=== PATIENT | female | born 1985 | race Caucasian/White ===

== ENCOUNTER 2020-02-13 02:38 | Emergency (ER) | payer SELFPAY ==
--- NOTE | 2020-02-13 02:57 | ERPHSYRPT ---
- History of Present Illness Time Seen by Provider: 02/13/20 02:50 Source: patient Exam Limitations: no limitations Physician History: This is a 34-year-old intoxicated white female who fell backwards hitting her head causing a 2-1/2 to 3 cm laceration in the back of her head. Patient told the nurse that she has had her tetanus shot within the last 5 years. However she told me that she did not know. Patient is intoxicated and did not recall the specific events. But then stated that she did not pass out or lose consciousness. Occurred: just prior to arrival Severity: mild Head Injury Location: occipital Method of Injury: fell Loss of Consciousness: other (Recall) Associated Symptoms: denies symptoms Allergies/Adverse Reactions: No Known Drug Allergies Allergy (Unverified 02/13/20 02:44) Home Medications: No Home Meds [No Home Meds] 07/30/13 [History] Hx Tetanus, Diphtheria Vaccination/Date Given: Yes (2008) Hx Influenza Vaccination/Date Given: No Hx Pneumococcal Vaccination/Date Given: No Travel Risk - International Travel Have you traveled outside of the country in past 3 weeks: No - Coronavirus Screening Are you exhibiting any of the following symptoms?: No Close contact with a COVID-19 positive Pt in past 14-21 Days: No - Review of Systems Constitutional: No Symptoms Eyes: No Symptoms Ears, Nose, & Throat: No Symptoms Respiratory: No Symptoms Cardiac: No Symptoms Abdominal/Gastrointestinal: No Symptoms Genitourinary Symptoms: No Symptoms Musculoskeletal: No Symptoms Skin: Other (Scalp laceration) Neurological: Other (Obvious alcohol intoxication) Psychological: No Symptoms Endocrine: No Symptoms Hematologic/Lymphatic: No Symptoms Immunological/Allergic: No Symptoms All Other Systems: Reviewed and Negative - Past Medical History Pertinent Past Medical History: No Neurological History: No Pertinent History ENT History: No Pertinent History Cardiac History: No Pertinent History Respiratory History: No Pertinent History Endocrine Medical History: No Pertinent History Musculoskeletal History: No Pertinent History GI Medical History: No Pertinent History History: No Pertinent History Psycho-Social History: No Pertinent History Female Reproductive Disorders: No Pertinent History - Past Surgical History Past Surgical History: No Neuro Surgical History: No Pertinent History Cardiac: No Pertinent History Respiratory: No Pertinent History Gastrointestinal: No Pertinent History Genitourinary: No Pertinent History Musculoskeletal: No Pertinent History Female Surgical History: No Pertinent History - Social History Smoking Status: Current every day smoker How long have you smoked: 5 YEARS Exposure to second hand smoke: Yes Alcohol Use: Socially Drug Use: none Patient Lives Alone: No Significant Family History: no pertinent family hx - Nursing Vital Signs Nursing Vital Signs: Initial Vital Signs Temperature 97.6 F 02/13/20 02:39 Pulse Rate 98 H 02/13/20 02:39 Respiratory Rate 16 02/13/20 02:39 Blood Pressure 135/95 02/13/20 02:39 O2 Sat by Pulse Oximetry 99 02/13/20 02:39 Pain Scale Pain Intensity 0 - [place] Coma Score Best Eye Response ([place]): (3) open to voice Best Verbal Response ([place]): (4) confused conversation Best Motor Response ([place]): (6) obeys commands [place] Total: 13 - Physical Exam General Appearance: obese, other (Smells of alcohol ingestion) Head Injury: lacerations (Transverse occipital region. No active bleeding) Eye Exam: bilateral eye: normal inspection, PERRL, EOMI ENT Exam: airway nml, nml ext.inspection Neck Exam: supple, trachea midline, full range of motion, normal alignment, normal inspection Cardiovascular/Respiratory Exam: chest non-tender, normal breath sounds, regular rate/rhythm, heart sounds normal, no respiratory distress, No rib tenderness, No subcutaneous emphysema, No crepitus Gastrointestinal/Abdominal Exam: soft, non tender, no distention, no mass, no guarding, No guarding, No rebound, No tenderness Pelvic Exam: not done Rectal Exam: not done Back Exam: normal inspection, normal range of motion, No CVA tenderness, No vertebral tenderness Extremity Exam: non-tender, normal range of motion, normal inspection Mental Status Exam: alert, oriented x 3, cooperative, 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 Examination was performed in a bloodless field to the base.) Irrigated: Yes Hibiclens Prep: Yes Wound Repaired With: Cheikh (Six cheikh were placed to approximate the wound.) Layer Closure?: No Progress: 02/13/20 03:56 The area was prepped with Hibiclens by the nurse. 4 x 4's were used to dry the laceration site. Six cheikh were placed to approximate the skin edges. There were no complications the patient told procedure well. - Course Nursing assessment & vital signs reviewed: Yes Ordered Tests: Active Orders 24 hr Category Date Time Status HEAD WITHOUT CONTRAST [CT] Stat Exams 02/13/20 02:57 Taken - Progress Progress: improved Progress Note: 02/13/20 03:57 CAT scan of the head without contrast reveals no cranial fracture and no intracranial abnormality. Counseled pt/family regarding: diagnosis, need for follow-up, rad results - Departure Departure Disposition: Home Clinical Impression: Scalp laceration Condition: Stable Critical Care Time: No Referrals: JIMI CHIN [Primary Care Provider] - Additional Instructions: Keep area dry for 24 hours. After 24 hours. May shower daily with soap and water. Blot dry use a hairdryer. Staple removal in 8 to 10 days. Use Tylenol or ibuprofen for pain control.
[2020-02-13 04:21] VITALS: BP 97/63; PULSE 88; O2SAT 97
--- NOTE | 2020-02-13 06:02 | XRAY ---
Indication: Occipital laceration following fall. Multiple contiguous axial images obtained through the head without contrast. Comparison: April 23, 2012. Normal appearing brain parenchyma, ventricles, and bony calvarium. Visualized paranasal sinuses and mastoid air cells are clear. Impression: Normal CT head without contrast exam. Comment: Preliminary interpretation was made by [facility]. No critical discrepancy.
== END 2020-02-13 04:10 | disposition home or self-care (01) ==
LOC: ED 02:38
DX: S01.01XA Laceration without foreign body of scalp, initial encounter (principal); W01.198A Fall on same level from slipping, tripping and stumbling with subsequent striking against other object, initial encounter; Y93.89 Activity, other specified; Y92.89 Other specified places as the place of occurrence of the external cause; F10.129 Alcohol abuse with intoxication, unspecified; Z72.0 Tobacco use
CPT/HCPCS: 12002; 70450; 99283